=== PATIENT | female | born 1960 | race Caucasian/White ===

== ENCOUNTER 2022-04-29 10:03 | Day surgery (SDC) | payer MEDICAID ==
[2022-04-28 12:33] LABS: COVID AG,FIA SOURCE NASAL SWAB
[~2022-04-29] VITALS: Ht 170.2 cm; Wt 71.3 kg
[~2022-04-29 10:03] MED LIST: SODIUM CHLORIDE 0.9% 1,000 ML IV ONE; SODIUM CHLORIDE 0.9% 1,000 ML ONE
[2022-04-29] MEDS ORDERED: LEVO100 PO (10:33)
[2022-04-29] MEDS ORDERED: LIDOCAINE/PF 2% 5 ML SYRINGE IVP ONE (12:00)
[2022-04-29] MEDS ORDERED: PROPOFOL 1% 20 ML VIAL IVP ONE (12:00)
== END 2022-04-29 13:45 | disposition home or self-care (01) ==
LOC: SURGERY 10:03
PROVIDERS: ATTEND Internal Medicine Gastroenterology
DX: K57.30 Diverticulosis of large intestine without perforation or abscess without bleeding (principal); K64.0 First degree hemorrhoids; Z88.6 Allergy status to analgesic agent; Z88.8 Allergy status to other drugs, medicaments and biological substances; Z98.890 Other specified postprocedural states
CPT/HCPCS: 45378; 87426; C9803; J2704; J3490; J7030